=== PATIENT | female | born 1965 | race Caucasian/White ===

== ENCOUNTER 2018-04-14 08:49 | Emergency (ER) | payer SELFPAY ==
[2018-04-14] MEDS ORDERED: LORAZEPAM 2 MG/ML VIAL IV ONE (09:43)
[2018-04-14] MEDS ORDERED: 0.9 % SODIUM CHLORIDE 1,000 ML BAG IV ONE (09:44)
[2018-04-14 10:02] LABS: EOS % 0.5 % (0-6); GRAN % 57.6 % (47-80); HEMOGLOBIN 14.6 gm/dl (11.6-16.0); LYMPH % 35.5 % (16-45); MEAN CELL VOLUME 88.3 fl (81-97); MEAN PLATELET VOLUME 9.9 fl (7.4-10.4); MONO % 6.4 % (0-9); PLATELET COUNT 198 K/uL (130-400); RED BLOOD COUNT 4.87 M/uL (3.80-5.40); RED CELL DISTRIBUTION WIDTH 12.2 % (11.5-14.5); WHITE BLOOD COUNT W/O DIFF 9.5 K/uL (4.2-12.2)
[2018-04-14 10:12] LABS: URINE APPEARANCE CLEAR; URINE BILIRUBIN NEGATIVE (NEGATIVE); URINE BLOOD NEGATIVE (NEGATIVE); URINE COLOR YELLOW; URINE GLUCOSE (UA) NEGATIVE (NEGATIVE); URINE KETONE NEGATIVE (NEGATIVE); URINE LEUKOCYTE ESTERASE NEGATIVE (NEGATIVE); URINE NITRITE NEGATIVE (NEGATIVE); URINE PROTEIN NEGATIVE (NEGATIVE); URINE UROBILINOGEN 0.2 E.U./dL (0.20 - 1.00)
[2018-04-14 10:14] LABS: BLOOD UREA NITROGEN 15 mg/dL (6-20)
[2018-04-14 10:15] LABS: CREATININE 0.8 mg/dL (0.5-0.9); EST GLOMERULAR FILTRATION RATE > 60 mL/min; TOTAL PROTEIN 7.5 g/dL (6.6-8.7)
[2018-04-14 10:17] LABS: GLUCOSE,RANDOM 118 mg/dL (74-109)
--- NOTE | 2018-04-14 10:19 | Emergency Department Record ---
History of Present Illness - General Chief Complaint: Dizziness Stated Complaint: DIZZINESS Time Seen by Provider: 04/14/18 09:20 Source: Patient, Family Mode of Arrival: Wheelchair Limitations: No limitations - History of Present Illness Initial Comments: pt feels weak and dizzy. she has no cp. she has a taylor. she has been under a lot of stress. Timing: Awoke with symptoms Description: Lightheadedness, Nausea History of Same: No Improves With: Nothing Worsens With: Nothing Associated Symptoms: Loss of appetite, Shortness of breath, Weakness - [place] Coma Scale Eye Response: (4) Open spontaneously Motor Response: (6) Obeys commands Verbal Response: (5) Oriented [place] Total: 15 - Symptoms of Stroke Onset of Symptoms Date: 04/14/18 Symptoms of stroke: Dizziness, Numbness - Related Data Previous Rx's Medication Instructions Recorded Lorazepam [Ativan] 0.5 mg PO BID PRN #10 tablet 04/14/18 Meclizine HCl [Antivert] 25 mg PO Q8H #10 tablet 04/14/18 Allergies Allergy/AdvReac Type Severity Reaction Status Date / Time codeine Allergy Unknown HYPERSENSIT Verified 04/14/18 08:56 IVITY levofloxacin Allergy Unknown RASH Verified 04/14/18 08:56 Quinolones Allergy Unknown RASH Verified 04/14/18 08:56 Travel Screening - Travel/Exposure Within Last 30 Days Have you traveled within the last 30 days?: No Review of Systems Reviewed: No additional complaints except as noted below Constitutional: Reports: As per HPI, Weakness. Denies: Chills, Fever, Malaise, Night sweats, Weight change Eyes: Reports: As per HPI. Denies: Eye discharge, Eye pain, Photophobia, Vision change ENT: Reports: As per HPI. Denies: Congestion, Dental pain, Ear pain, Epistaxis , Hearing loss, Throat pain Respiratory: Reports: As per HPI, Dyspnea. Denies: Cough, Hemoptysis, Stridor, Wheezes Cardiovascular: Reports: As per HPI. Denies: Arrhythmia, Chest pain, Dyspnea on exertion, Edema, Murmurs, Orthopnea, Palpitations, Paroxysmal nocturnal dyspnea, Rheumatic Fever, Syncope Endocrine: Reports: As per HPI. Denies: Fatigue, Heat or cold intolerance, Polydipsia, Polyuria Gastrointestinal: Reports: As per HPI. Denies: Abdominal pain, Constipation, Diarrhea, Hematemesis, Hematochezia, Melena, Nausea, Vomiting Genitourinary: Reports: As per HPI, Frequency. Denies: Abnormal menses, Discharge, Dyspareunia, Dysuria, Hematuria, Incontinence, Retention, Urgency Musculoskeletal: Reports: As per HPI. Denies: Arthralgia, Back pain, Gout, Joint swelling, Myalgia, Neck pain Skin: Reports: As per HPI. Denies: Bruising, Change in color, Change in hair/ nails, Lesions, Pruritus, Rash Neurological: Reports: As per HPI. Denies: Abnormal gait, Confusion, Headache, Numbness, Paresthesias, Seizure, Tingling, Tremors, Vertigo, Weakness Psychiatric: Reports: As per HPI. Denies: Anxiety, Auditory hallucinations, Depression, Homicidal thoughts, Suicidal thoughts, Visual hallucinations Hematological/Lymphatic: Reports: As per HPI. Denies: Anemia, Blood Clots, Easy bleeding, Easy bruising, Swollen glands Past Medical History - SOCIAL HISTORY Smoking Status: Never smoker Alcohol Use: None Drug Use: None - RESPIRATORY Hx Respiratory Disorders: No Comment:: positive TB treated 1975, allergies - CARDIOVASCULAR Hx Cardio Disorders: Yes Comment:: mitral valve prolapse, bradycardia - NEURO Hx Neuro Disorders: Yes Hx Headaches: Yes - GI Hx GI Disorders: No - Hx Genitourinary Disorders: No - ENDOCRINE Hx Endocrine Disorders: No Hx Diabetes: No Hx Thyroid Disease: No - MUSCULOSKELETAL Hx Musculoskeletal Disorders: Yes - PSYCH Hx Psych Problems: Yes Hx Anxiety: Yes - HEMATOLOGY/ONCOLOGY Hx Hematology/Oncology Disorders: No Family Medical History Any Significant Family History?: Yes Hx Cancer: Mother Physical Exam - General General Appearance: Alert, Oriented x3, Cooperative, Mild distress - Head Head exam: Normal inspection - Eye Eye exam: Normal appearance, PERRL, EOMI Pupils: Normal accommodation - ENT ENT exam: Normal exam, Mucous membranes moist, Normal external ear exam, Normal orophraynx Ear exam: Normal external inspection. negative: External canal tenderness Nasal Exam: Normal inspection. negative: Discharge, Sinus tenderness Mouth exam: Normal external inspection, Tongue normal Teeth exam: Normal inspection. negative: Dental caries Throat exam: Normal inspection. negative: Tonsillar erythema, Tonsillar exudate - Neck Neck exam: Normal inspection, Full ROM. negative: Tenderness - Respiratory Respiratory exam: Normal lung sounds bilaterally. negative: Respiratory distress - Cardiovascular Cardiovascular Exam: Regular rate, Normal rhythm, Normal heart sounds - GI/Abdominal GI/Abdominal exam: Soft, Normal bowel sounds. negative: Tenderness - Rectal Rectal exam: Deferred - exam: Deferred - Extremities Extremities exam: Normal inspection, Full ROM, Normal capillary refill. negative: Tenderness - Back Back exam: Reports: Normal inspection, Full ROM. Denies: Muscle spasm, Rash noted, Tenderness - Neurological Neurological exam: Alert, CN II-XII intact, Normal gait, Oriented X3 - Psychiatric Psychiatric exam: Normal affect, Normal mood - Skin Skin exam: Dry, Intact, Normal color, Warm Course Vital Signs 04/14/18 04/14/18 08:51 09:38 Temperature 97.9 F Pulse Rate 60 Pulse Rate [ 53 L [place] ] Respiratory 24 16 Rate Blood Pressure 173/89 Blood Pressure 147/91 [Left Arm] Pulse Ox 100 98 - Reevaluation(s) Reevaluation #1: 04/14/18 11:07 pt feels better Medical Decision Making - Lab Data Result diagrams: 04/14/18 09:45 04/14/18 09:45 Lab Results 04/14/18 Range/Units 09:45 WBC 9.5 (4.2-12.2) K/uL RBC 4.87 (3.80-5.40) M/uL Hgb 14.6 (11.6-16.0) gm/dl Hct 43.0 (35.0-47.0) % MCV 88.3 (81-97) fl MCH 30.0 (27-33) pg MCHC 34.0 (32-36) g/dl RDW 12.2 (11.5-14.5) % Plt Count 198 (130-400) K/uL MPV 9.9 (7.4-10.4) fl Gran % 57.6 (47-80) % Lymphocytes % 35.5 (16-45) % Monocytes % 6.4 (0-9) % Eosinophils % 0.5 (0-6) % Basophils % 0.0 (0-6) % Disposition Disposition: Discharge Clinical Impression: Weakness, Anxiety, Vertigo, Hypokalemia Disposition: Home, Self-Care Condition: (1) Good Instructions: Dizziness (ED), Vertigo (ED), Anxiety (ED) Additional Instructions: follow up with family doctor. return sooner if worse Prescriptions: Lorazepam [Ativan] 0.5 mg PO BID PRN #10 tablet PRN Reason: Anxiety Meclizine HCl [Antivert] 25 mg PO Q8H #10 tablet Forms: Patient Portal Access Quality - Quality Measures Quality Measures: N/A - Blood Pressure Screening Does Patient Have Any of the Following: No Blood Pressure Classification: Pre-Hypertensive BP Reading Systolic Measurement: 173 Diastolic Measurement: 89 Screening for High Blood Pressure: < Pre-Hypertensive BP, F/U Documented > [ G8950] Pre-Hypertensive Follow-up Interventions: Follow-up with rescreen every year.
[2018-04-14 10:20] LABS: ALB/GLOB RATIO 1.8 (1.1-1.8); ALBUMIN 4.8 g/dL (4.0-5.0); ALKALINE PHOSPHATASE 113 U/L (35-104); ALT/SGPT 25 U/L (<33); AST/SGOT 23 U/L (10.0-35.0); CREATINE PHOSPHOKINASE 129 U/L (26-192)
[2018-04-14 10:23] LABS: CKMB 1.7 ng/mL (<3.77)
[2018-04-14 10:30] LABS: THYROID STIMULATING HORMONE 2.17 uIU/mL (0.270-4.20)
[2018-04-14] MEDS ORDERED: POTASSIUM CHLORIDE 20 MEQ TABLET PO ONE (10:47)
[2018-04-14] MEDS ORDERED: POTASSIUM CHLORIDE 20 MEQ/15ML CUP PO ONE (11:00)
--- NOTE | 2018-04-15 12:53 | CT SCAN REPORT ---
EXAM: CT OF THE BRAIN WITHOUT CONTRAST HISTORY: HEADACHE. TECHNIQUE: CT of the brain without contrast was obtained. Comparison: Prior CT of the brain from 03/03/10. FINDINGS: The globes are intact. The paranasal sinuses and mastoid air cells are unremarkable. No displaced or depressed skull fracture. No intra or extraaxial hemorrhage. CT limited for evaluation of acute infarct. No CT evidence for large or territorial acute infarct. No mass or midline shift. IMPRESSION: NEGATIVE CT OF THE BRAIN EXAMINATION. JOB NUMBER: [id number] MTDD
== END 2018-04-14 11:29 | disposition home or self-care (01) ==
LOC: ER 08:49
DX: R53.1 Weakness (principal); R42 Dizziness and giddiness; E87.6 Hypokalemia; R06.02 Shortness of breath; R11.0 Nausea; R51 Headache; F41.9 Anxiety disorder, unspecified
CPT/HCPCS: 99284 ×2; 96374; 96361; 82550; 83605; 85025; 82553; 80053; 81003; 84443; 84484; 83880; 70450; 93005; 93010; J2060; J7030

== ENCOUNTER 2019-04-27 17:23 | Emergency (ER) | payer SELFPAY ==
[2019-04-27] MEDS ORDERED: DIPHENHYDRAMINE HCL 50 MG/ML VIAL IVP ONE (18:03)
[2019-04-27] MEDS ORDERED: KETOROLAC 30 MG/ML VIAL IVP ONE (18:03)
[2019-04-27] MEDS ORDERED: METOCLOPRAMIDE HCL 10 MG/2 ML VIAL IVP ONE (18:03)
--- NOTE | 2019-04-27 18:08 | Emergency Department Record ---
History of Present Illness - General Chief Complaint: Headache Migraine Stated Complaint: MIGRAINE 3 DAYS/ HBP Time Seen by Provider: 04/27/19 18:02 Source: Patient Mode of Arrival: Ambulatory Limitations: No limitations - History of Present Illness Initial Comments: 53 yo female presents to ED for evaluation of headache symptoms, nausea, and vomiting that began 48 hours ago. Patient denies fever or neck stiffness symptoms, reports a historyu of migraine headaches with similar symptoms. Patient reports photophobia and "blurred" vision which is normal for her previous migraine headaches. Patient denies the use of anticoagulation medications at her baseline. MD Complaint: Headache Onset/Timin -: Days(s) Onset Description: Gradual Location: Left Severity: Severe Severity scale (1-10): 9 Quality: Different than previous headaches Consistency: Constant Improves With: Nothing Worsens With: Light, Movement of head/neck, Other Associated Symptoms: Photophobia, Sensitivity to sound, Other Treatments Prior to Arrival: Other Treatment Prior to Arrival Comment:: ativan - Related Data Home Medications Medication Instructions Recorded Confirmed Last Taken Lisinopril 5 mg PO DAILY 04/27/19 04/27/19 Unknown Allergies Allergy/AdvReac Type Severity Reaction Status Date / Time codeine Allergy Unknown HYPERSENSIT Verified 04/14/18 08:56 IVITY levofloxacin Allergy Unknown RASH Verified 04/14/18 08:56 Quinolones Allergy Unknown RASH Verified 04/14/18 08:56 Travel Screening - Travel/Exposure Within Last 30 Days Have you traveled within the last 30 days?: No Review of Systems Constitutional: Denies: Chills, Fever, Malaise, Night sweats Eyes: Denies: Eye discharge, Eye pain ENT: Denies: Congestion, Epistaxis, Hearing loss Respiratory: Denies: Cough, Dyspnea Cardiovascular: Denies: Chest pain, Dyspnea on exertion Endocrine: Denies: Fatigue, Heat or cold intolerance Gastrointestinal: Reports: Nausea, Vomiting. Denies: Abdominal pain Genitourinary: Denies: Incontinence, Retention Musculoskeletal: Denies: Arthralgia, Back pain Skin: Denies: Bruising, Change in color Neurological: Reports: Headache. Denies: Abnormal gait, Confusion Psychiatric: Denies: Anxiety Hematological/Lymphatic: Denies: Anemia, Blood Clots Past Medical History - SOCIAL HISTORY Smoking Status: Never smoker - RESPIRATORY Hx Respiratory Disorders: No Comment:: positive TB treated 1975, allergies - CARDIOVASCULAR Hx Cardio Disorders: Yes Comment:: mitral valve prolapse, bradycardia - NEURO Hx Neuro Disorders: Yes Hx Headaches: Yes - GI Hx GI Disorders: No - Hx Genitourinary Disorders: No - ENDOCRINE Hx Endocrine Disorders: No Hx Diabetes: No Hx Thyroid Disease: No - MUSCULOSKELETAL Hx Musculoskeletal Disorders: Yes - PSYCH Hx Psych Problems: Yes Hx Anxiety: Yes - HEMATOLOGY/ONCOLOGY Hx Hematology/Oncology Disorders: No Family Medical History Any Significant Family History?: Yes Hx Cancer: Mother Physical Exam - General General Appearance: Alert, Oriented x3, Cooperative, Moderate distress Limitations: No limitations - Head Head exam: Atraumatic, Normocephalic, Normal inspection Head exam detail: negative: Abrasion, Contusion, Clark's sign, General tenderness, Hematoma, Laceration - Eye Eye exam: Normal appearance. negative: Conjunctival injection, Periorbital swel ling, Periorbital tenderness, Scleral icterus - ENT Ear exam: negative: Auricular hematoma, Auricular trauma Nasal Exam: negative: Active bleeding, Discharge, Dried blood, Foreign body Mouth exam: negative: Drooling, Laceration, Muffled voice, Tongue elevation - Neck Neck exam: Normal inspection. negative: Meningismus, Tenderness - Respiratory Respiratory exam: Normal lung sounds bilaterally. negative: Respiratory distress, Rhonchi, Stridor, Wheezes - Cardiovascular Cardiovascular Exam: Regular rate, Normal rhythm, Normal heart sounds - GI/Abdominal GI/Abdominal exam: Soft. negative: Distended, Rebound, Rigid, Tenderness - Rectal Rectal exam: Deferred - exam: Deferred - Extremities Extremities exam: Normal inspection. negative: Pedal edema, Tenderness - Back Back exam: Denies: CVA tenderness (R), CVA tenderness (L) - Neurological Neurological exam: Alert, Normal gait, Oriented X3 - Psychiatric Psychiatric exam: Normal affect, Normal mood - Skin Skin exam: Normal color. negative: Abrasion Type of lesion: negative: abrasion Course Vital Signs 04/27/19 17:41 Temperature 100.2 F H Pulse Rate 95 H Respiratory 20 Rate Blood Pressure 116/84 Pulse Ox 96 - Reevaluation(s) Reevaluation #1: 04/27/19 18:55 Laboratory studies were reviewed and are grossly unremarkable except for the following: WBC 13.2 82% Neutrophils UA demonstrates: 7-10 RBCs 0-2 WBCs 0-2 Epithelial cells. Reevaluation #2: 04/27/19 19:29 Patient was reassessed, updated on all results thus far. Patient reports mild improvement in her headache symptoms. No clinical evidence for pneumonia on examination, no abdominal pain to suggest and intr-abdominal source of her fever symptoms. UA appears negative for infection. Discussed performed LP for symptoms concerning for possible meningitis, patient is declining at this time. Family friend is present at the bedside for discussion. Will reassess in another 30 minutes to determine disposition. Reevaluation #3: 04/27/19 20:18 Initial preliminary review of the patient's CXR and CT Brain do not suggest and acute process. Reevaluation #4: 04/27/19 20:51 CT Brain: No acute process CXR: No acute process Patient was reassessed, reports that her headache symptoms are 7/10. Discussed LP with the patient, patient continue to decline. Following discussion with the patient regarding lumbar puncture, patient reports that they do not want to have LP performed at this time. Risks of , permanent impairment, or worsening of their current condition were discussed as well as the benefit of diagnosis and treatment for meningitis were discussed. Patient verbalizes understanding of all risks and benefits, desires to leave AMA despite these risks. Based on my examination, the patient is alert, oriented, and answers all questions appropriately. Patient appears to have the capacity to make rational decisions based on my examination. Patients friend was present for the duration of our discussion as well. Patient was encouraged to return to the ED immediately if they change their mind about treatment and want to be re-evaluated. Medical Decision Making - Lab Data Result diagrams: 04/27/19 18:13 04/27/19 18:13 Disposition Disposition: Other (AMA) Clinical Impression: Headache Qualifiers: Headache type: unspecified Headache chronicity pattern: acute headache Intractability: not intractable Qualified Code(s): R51 - Headache Fever Qualifiers: Fever type: unspecified Qualified Code(s): R50.9 - Fever, unspecified Disposition: Against Medical Advice Condition: (2) Stable Instructions: Acute Headache (ED) Additional Instructions: Return to ED if your symptoms worsen or if you have any concerns. Return to the ED if you change your mind and would like to be further evaluation including spinal tap. Tylenol/Ibuprofen as directed for fever symptoms. Follow-up with your family doctor in 3-5 days as directed. Forms: Patient Portal Access Time of Disposition: 20:54 Quality - Quality Measures Quality Measures: N/A - Blood Pressure Screening Does Patient Have Any of the Following: No Blood Pressure Classification: Pre-Hypertensive BP Reading Systolic Measurement: 116 Diastolic Measurement: 84 Screening for High Blood Pressure: < Pre-Hypertensive BP, F/U Documented > [G8950] Pre-Hypertensive Follow-up Interventions: Referral to alternative/primary care provider.
[2019-04-27] MEDS ORDERED: 0.9 % SODIUM CHLORIDE 1000ML 1,000 ML IV SCH (18:15)
[2019-04-27 18:23] LABS: HEMATOCRIT 42.9 % (35.0-47.0); HEMOGLOBIN 14.3 gm/dl (11.6-16.0); MEAN CELL VOLUME 89.2 fl (81-97); MEAN CORPUSCULAR HEMOGLOBIN 29.7 pg (27-33); MEAN CORPUSCULAR HGB CONC 33.3 g/dl (32-36); MEAN PLATELET VOLUME 9.5 fl (7.4-10.4); PLATELET COUNT 206 K/uL (130-400); RED BLOOD COUNT 4.81 M/uL (3.80-5.40); RED CELL DISTRIBUTION WIDTH 13.1 % (11.5-14.5); WHITE BLOOD COUNT W/O DIFF 13.2 K/uL (4.2-12.2)
[2019-04-27 18:24] LABS: URINE APPEARANCE CLEAR; URINE BILIRUBIN NEGATIVE (NEGATIVE); URINE BLOOD SMALL (NEGATIVE); URINE COLOR YELLOW; URINE GLUCOSE (UA) NEGATIVE (NEGATIVE); URINE KETONE NEGATIVE (NEGATIVE); URINE LEUKOCYTE ESTERASE TRACE (NEGATIVE); URINE NITRITE NEGATIVE (NEGATIVE)
[2019-04-27 18:33] LABS: BLOOD UREA NITROGEN 12 mg/dL (6-20); CREATININE 0.9 mg/dL (0.5-0.9); EST GLOMERULAR FILTRATION RATE > 60 mL/min
[2019-04-27 18:34] LABS: TOTAL PROTEIN 7.1 g/dL (6.6-8.7)
[2019-04-27 18:36] LABS: GLUCOSE,RANDOM 148 mg/dL (74-109)
[2019-04-27 18:38] LABS: ALB/GLOB RATIO 1.2 (1.1-1.8); ALBUMIN 3.9 g/dL (4.0-5.0); ALT/SGPT 114 U/L (<33); AST/SGOT 108 U/L (10.0-35.0)
[2019-04-27 18:39] LABS: ALKALINE PHOSPHATASE 143 U/L (35-104)
[2019-04-27 18:43] LABS: URINE EPITHELIAL CELLS 0 - 2 (FEW); URINE WBC 0 - 2 (0-2/hpf)
[2019-04-27 18:47] LABS: PLATELET ESTIMATE NORMAL (NORMAL)
--- NOTE | 2019-04-29 06:00 | RADIOLOGY REPORT ---
EXAM: CHEST 2 VIEWS HISTORY: FEVER. VERTIGO AND BLURRED VISION. TECHNIQUE: PA and lateral upright views of the chest were obtained. COMPARISON: October 08, 2006. FINDINGS: The heart, mediastinum, and pulmonary vasculature are normal. There are no visible acute infiltrates or effusions. There is no pneumothorax. The bones appear intact. IMPRESSION: NO ACUTE CHEST PATHOLOGY. JOB NUMBER: [id number] MTDD
--- NOTE | 2019-04-29 06:02 | CT SCAN REPORT ---
EXAM: CT SCAN HEAD WO CONTRAST HISTORY: HEADACHE WITH VERTIGO AND BLURRED VISION. NAUSEA. TECHNIQUE: Standard CT imaging of the brain was performed in the axial plane without contrast. Additional coronal and sagittal reformatted images were also performed. COMPARISON: April 14, 2018. FINDINGS: The ventricles and subarachnoid spaces are normal. The brain parenchyma is unremarkable. There is no mass, mass-effect, intracranial hemorrhage, visible acute infarct, or abnormal extra-axial fluid. The skull is intact. The orbits, sinuses, and mastoids are normal. IMPRESSION: NO ACUTE INTRACRANIAL ABNORMALITY. JOB NUMBER: [id number] MTDD
== END 2019-04-27 21:04 | disposition left against medical advice (07) ==
LOC: ER 17:23
DX: R51 Headache (principal); R42 Dizziness and giddiness; R50.9 Fever, unspecified; H53.143 Visual discomfort, bilateral
CPT/HCPCS: 99284 ×2; 96374; 96375; 80053; 81001; 85027; 71046; 70450; J1885; J1200; J2765; J7030